=== PATIENT | male | born 2000 | race African-American/Black ===

== ENCOUNTER 2018-01-19 12:15 | Emergency (ER) | payer OTHER ==
[~2018-01-19] VITALS: Ht 162.6 cm; Wt 53.6 kg
[2018-01-19 12:16] VITALS: BP 112/71; PULSE 100; TEMP 36.3; O2SAT 97; Ht 162.6 cm; Wt 53.6 kg
[2018-01-19] MEDS ORDERED: CEFAZOLIN SOD 1 GM VIAL IM STA (12:40)
[2018-01-19] MEDS ORDERED: CEPH500C PO (12:42)
[2018-01-19] MEDS ORDERED: CEPHALEXIN 500MG HOME PACK 1 EA BTL PO ONE (12:45)
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
== END 2018-01-19 13:01 | disposition home or self-care (01) ==
LOC: C.EDB 12:18 → C.EDD 13:01
DX: S90.512A Abrasion, left ankle, initial encounter (principal); V18.0XXA Pedal cycle driver injured in noncollision transport accident in nontraffic accident, initial encounter; Y93.55 Activity, bike riding; L08.9 Local infection of the skin and subcutaneous tissue, unspecified